=== PATIENT | male | born 1955 | race Caucasian/White ===

== ENCOUNTER 2016-12-02 11:12 | Inpatient (IN) | payer OTHER ==
[~2016-12-02] VITALS: Ht 177.8 cm; Wt 94.5 kg
[2016-12-02] MEDS ORDERED: CARV6.252 PO (11:36)
[2016-12-02] MEDS ORDERED: LOSA50TA6 PO (11:36)
[2016-12-02] MEDS ORDERED: DULA0.75 INJ (11:36)
[2016-12-02] MEDS ORDERED: NITROGLYCERIN OINT 2%, 1GM TP ONE ×2 (11:44→12:00)
[2016-12-02] MEDS ORDERED: SODIUM CHLORIDE FLUSH 10ML SYR IVF ONE ×2 (12:00→14:30)
[2016-12-02 12:05] LABS: HEMATOCRIT 47.7 % (39.2-51.8); HEMOGLOBIN 16.3 g/dL (13.7-18.0); WHITE BLOOD COUNT 8.5 x10^3/uL (3.4-10)
[2016-12-02 12:15] LABS: ASPARTATE AMINO TRANSFERASE 32 U/L (15-37); BLOOD UREA NITROGEN 13 mg/dL (7-18)
[2016-12-02 12:29] LABS: IS PT STATUS REG ER OR PRE ER? YES
[2016-12-02] MEDS ORDERED: HEPARIN 25,000 UNITS/500ML PMX 500 ML ONE (13:11)
[2016-12-02] MEDS ORDERED: HEPARIN 25,000 UNITS/500ML PMX 500 ML IV PRN (13:30)
[2016-12-02] MEDS ORDERED: HEPARIN 5,000 UNITS/ML, 1ML ONE (13:30)
[2016-12-02] MEDS ORDERED: HEPARIN 5,000 UNITS/ML, 1ML IV PRN (13:30)
[2016-12-02] MEDS ORDERED: HEPARIN 5,000 UNITS/ML, 1ML IV ONE (13:30)
[2016-12-02 14:22] VITALS: BP 121/79
[2016-12-02] MEDS ORDERED: GLUCAGON 1 MG IM PRN (15:30)
[2016-12-02] MEDS ORDERED: MORPHINE SULFATE 4 MG/ML, 1ML IVPush PRN (15:30)
[2016-12-02] MEDS ORDERED: DOCUSATE 100 MG CAPSULE PO PRN (15:30)
[2016-12-02] MEDS ORDERED: DEXTROSE 4 GM TAB.CHEW PO PRN (15:30)
[2016-12-02] MEDS ORDERED: BISACODYL 10 MG SUPP PR PRN (15:30)
[2016-12-02] MEDS ORDERED: POLYETHYLENE GLYCOL 17 GM PACKET PO PRN (15:30)
[2016-12-02] MEDS ORDERED: DEXTROSE 50%, 50ML SYRINGE IVPush PRN (15:30)
[2016-12-02] MEDS ORDERED: ONDANSETRON 2MG/ML, 2ML IVPush PRN (15:30)
[2016-12-02] MEDS ORDERED: ACETAMINOPHEN 325 MG TABLET PO PRN (15:30)
[2016-12-02] MEDS: INSULIN ASPART 100 UNITS/ML, PEN SQ-INSULIN SCH ×2 (16:00→21:42)
[2016-12-02 16:48] LABS: IS PT STATUS REG ER OR PRE ER? NO
[2016-12-02] MEDS: SODIUM CHLORIDE 0.9% 1,000 ML IV SCH (17:41)
[2016-12-02] MEDS ORDERED: METF500T4 PO (17:45)
[2016-12-02] MEDS ORDERED: ASPI325T17 PO (17:45)
[2016-12-02] MEDS ORDERED: MELO7.5T31 PO (17:45)
[2016-12-02] MEDS ORDERED: VALA500T PO (17:45)
[2016-12-02] MEDS ORDERED: FEXO180T72 PO (17:45)
[2016-12-02 19:43] VITALS: BP 104/63
[2016-12-02] MEDS ORDERED: CARVEDILOL 6.25 MG TABLET PO SCH (21:00)
[2016-12-02] MEDS: HEPARIN 5,000 UNITS/ML, 1ML IV PRN (21:19)
[2016-12-02] MEDS: ATORVASTATIN 80 MG TABLET PO SCH (21:20)
[2016-12-02] MEDS: CARVEDILOL 3.125 MG TABLET PO SCH (21:20)
[2016-12-02 21:29] LABS: IS PT STATUS REG ER OR PRE ER? NO
[2016-12-02] MEDS: INSULIN DETEMIR 100 UNITS/ML, PEN SQ-INSULIN SCH (21:42)
[2016-12-02] MEDS: SODIUM CHLORIDE FLUSH 10ML SYR IVF SCH (21:42)
[2016-12-03 01:19] VITALS: BP 103/61
[2016-12-03] MEDS: SODIUM CHLORIDE 0.9% 1,000 ML IV SCH (03:45)
[2016-12-03 03:59] LABS: HEMATOCRIT 42.5 % (39.2-51.8); HEMOGLOBIN 14.6 g/dL (13.7-18.0); WHITE BLOOD COUNT 10.5 x10^3/uL (3.4-10)
[2016-12-03 04:01] LABS: BLOOD UREA NITROGEN 16 mg/dL (7-18)
[2016-12-03 04:10] LABS: ASPARTATE AMINO TRANSFERASE 33 U/L (15-37)
[2016-12-03] MEDS: HEPARIN 5,000 UNITS/ML, 1ML IV PRN (04:57)
[2016-12-03] MEDS ORDERED: ASPIRIN 325 MG TABLET PO SCH (06:00)
[2016-12-03 07:14] VITALS: BP 109/58
[2016-12-03] MEDS: INSULIN ASPART 100 UNITS/ML, PEN SQ-INSULIN SCH ×4 (07:49→20:17)
[2016-12-03] MEDS: SODIUM CHLORIDE FLUSH 10ML SYR IVF SCH ×2 (07:51→20:20)
[2016-12-03] MEDS: LOSARTAN 50MG TABLET PO SCH (07:51)
[2016-12-03] MEDS: CARVEDILOL 3.125 MG TABLET PO SCH ×2 (07:51→20:19)
[2016-12-03] MEDS: INSULIN DETEMIR 100 UNITS/ML, PEN SQ-INSULIN SCH (07:52)
[2016-12-03] MEDS ORDERED: CARVEDILOL 6.25 MG TABLET PO SCH (09:00)
[2016-12-03] MEDS ORDERED: MIDAZOLAM 1 MG/ML, 5ML ONE (09:05)
[2016-12-03] MEDS ORDERED: TICAGRELOR 90 MG TABLET ONE (09:05)
[2016-12-03] MEDS ORDERED: HEPARIN 1,000 UNITS/ML, 10ML ONE (09:05)
[2016-12-03] MEDS ORDERED: BIVALIRUDIN 250 MG ONE (09:05)
[2016-12-03] MEDS ORDERED: FENTANYL PF 100 MCG/2ML ONE (09:05)
[2016-12-03] MEDS ORDERED: LIDOCAINE 2%, 20ML ONE (09:05)
[2016-12-03] MEDS ORDERED: VERAPAMIL 2.5 MG/ML, 2ML ONE (09:05)
[2016-12-03] MEDS ORDERED: DOPAMINE ONE (09:18)
[2016-12-03] MEDS ORDERED: PHENYLEPHRINE 10 MG/ML ONE (09:18)
[2016-12-03] MEDS ORDERED: D5W PMX ONE (09:18)
[2016-12-03] MEDS ORDERED: DIPHENHYDRAMINE 50 MG/ML, 1ML ONE (09:50)
[2016-12-03] MEDS ORDERED: SODIUM CHLORIDE 0.9% 1,000 ML IV SCH (12:00)
[2016-12-03 12:35] LABS: IS PT STATUS REG ER OR PRE ER? NO
[2016-12-03] MEDS ORDERED: HEPARIN 25,000 UNITS/500ML PMX 500 ML IV PRN (13:30)
[2016-12-03 13:36] VITALS: BP 130/81
[2016-12-03] MEDS ORDERED: SODIUM CHLORIDE NASAL SPRAY 45ML BOTTLE NAS PRN ×2 (18:30→19:00)
[2016-12-03 18:37] LABS: IS PT STATUS REG ER OR PRE ER? NO
[2016-12-03 18:52] VITALS: BP 165/99
[2016-12-03] MEDS ORDERED: ACETAMINOPHEN 325 MG TABLET PO PRN (19:00)
[2016-12-03] MEDS ORDERED: DEXTROSE 50%, 50ML SYRINGE IVPush PRN (19:00)
[2016-12-03] MEDS ORDERED: MORPHINE SULFATE 4 MG/ML, 1ML IVPush PRN (19:00)
[2016-12-03] MEDS ORDERED: GLUCAGON 1 MG IM PRN (19:00)
[2016-12-03] MEDS ORDERED: DOCUSATE 100 MG CAPSULE PO PRN (19:00)
[2016-12-03] MEDS ORDERED: DEXTROSE 4 GM TAB.CHEW PO PRN (19:00)
[2016-12-03] MEDS ORDERED: POLYETHYLENE GLYCOL 17 GM PACKET PO PRN (19:00)
[2016-12-03] MEDS ORDERED: BISACODYL 10 MG SUPP PR PRN (19:00)
[2016-12-03] MEDS ORDERED: ONDANSETRON 2MG/ML, 2ML IVPush PRN (19:00)
[2016-12-03 20:19] VITALS: BP 143/81
[2016-12-03] MEDS: ATORVASTATIN 80 MG TABLET PO SCH (20:19)
[2016-12-03] MEDS: TICAGRELOR 90 MG TABLET PO SCH (20:19)
[2016-12-03] MEDS: VALACYCLOVIR 500MG TABLET PO SCH (20:19)
[2016-12-04 01:57] VITALS: BP 139/83
[2016-12-04 05:23] LABS: HEMATOCRIT 45.6 % (39.2-51.8); HEMOGLOBIN 15.6 g/dL (13.7-18.0)
[2016-12-04 05:31] LABS: BLOOD UREA NITROGEN 10 mg/dL (7-18)
[2016-12-04] MEDS: INSULIN ASPART 100 UNITS/ML, PEN SQ-INSULIN SCH ×4 (07:00→20:38)
[2016-12-04 07:03] VITALS: BP 138/90
[2016-12-04] MEDS: LOSARTAN 50MG TABLET PO SCH (09:24)
[2016-12-04] MEDS: VALACYCLOVIR 500MG TABLET PO SCH ×2 (09:24→20:35)
[2016-12-04] MEDS: TICAGRELOR 90 MG TABLET PO SCH ×2 (09:24→20:36)
[2016-12-04] MEDS: ASPIRIN 81 MG TABLET EC PO SCH (09:24)
[2016-12-04] MEDS: CARVEDILOL 6.25 MG TABLET PO SCH ×2 (09:24→20:36)
[2016-12-04] MEDS: SODIUM CHLORIDE FLUSH 10ML SYR IVF SCH ×2 (09:25→20:36)
[2016-12-04 13:08] VITALS: BP 125/81
[2016-12-04 16:00] VITALS: BP 135/88
[2016-12-04 19:35] VITALS: BP 150/95
[2016-12-04] MEDS: ATORVASTATIN 80 MG TABLET PO SCH (20:35)
[2016-12-05 02:30] VITALS: BP 119/78
[2016-12-05 05:21] LABS: HEMOGLOBIN 16.6 g/dL (13.7-18.0); WHITE BLOOD COUNT 10.7 x10^3/uL (3.4-10)
[2016-12-05 05:30] LABS: BLOOD UREA NITROGEN 11 mg/dL (7-18)
[2016-12-05] MEDS: INSULIN ASPART 100 UNITS/ML, PEN SQ-INSULIN SCH ×2 (08:03→11:00)
[2016-12-05] MEDS: VALACYCLOVIR 500MG TABLET PO SCH (08:03)
[2016-12-05] MEDS: ASPIRIN 81 MG TABLET EC PO SCH (08:03)
[2016-12-05] MEDS: SODIUM CHLORIDE FLUSH 10ML SYR IVF SCH (08:04)
[2016-12-05] MEDS: LOSARTAN 50MG TABLET PO SCH (08:04)
[2016-12-05] MEDS: CARVEDILOL 6.25 MG TABLET PO SCH (08:04)
[2016-12-05] MEDS: TICAGRELOR 90 MG TABLET PO SCH (08:04)
[2016-12-05 08:05] VITALS: BP 126/80
[2016-12-05] MEDS ORDERED: CARV6.2512 PO (11:14)
[2016-12-05] MEDS ORDERED: ATOR-2 PO (11:14)
[2016-12-05] MEDS ORDERED: TICA90TA PO (11:14)
[2016-12-05] MEDS ORDERED: ASPI-621 PO (11:14)
[2016-12-05] MEDS ORDERED: PNEUMOCOCCAL 23 VACCINE IM-VACC ONE (13:00)
== END 2016-12-05 13:35 | disposition home or self-care (01) | DRG 247 ==
LOC: ED 12:46 → EDIP 13:15 → 5SO 14:15
PROVIDERS: ADMIT Family Medicine; ATTEND Internal Medicine
PROC: 027034Z Dilation of Coronary Artery, One Artery with Drug-eluting Intraluminal Device, Percutaneous Approach (ICD-10-PCS; principal; 2016-12-03)
PROC: 4A023N7 Measurement of Cardiac Sampling and Pressure, Left Heart, Percutaneous Approach (ICD-10-PCS; 2016-12-03)
PROC: B2111ZZ Fluoroscopy of Multiple Coronary Arteries using Low Osmolar Contrast (ICD-10-PCS; 2016-12-03)
DX: I21.4 Non-ST elevation (NSTEMI) myocardial infarction (principal); I47.2 Ventricular tachycardia; E11.65 Type 2 diabetes mellitus with hyperglycemia; E78.5 Hyperlipidemia, unspecified; I10 Essential (primary) hypertension; I25.10 Atherosclerotic heart disease of native coronary artery without angina pectoris; Y92.481 Parking lot as the place of occurrence of the external cause; Z79.82 Long term (current) use of aspirin; Z79.899 Other long term (current) drug therapy; Z82.49 Family history of ischemic heart disease and other diseases of the circulatory system; Z87.891 Personal history of nicotine dependence
CPT/HCPCS: 36415; 71010; 80048; 80053; 80061; 82040; 82550; 82553; 82962; 83036; 83690; 83735; 84100; 84443; 84484; 85025; 85347; 85520; 85610; 85730; 90732; 92920; 93005; 93306; 93458; 96374; 99156; 99157; C1769; C1894; C9600; J0583; J1265; J1644; J2250; J3010; J3490; 92928; C1725; C1874; C1887; J1200; J2370; J7030; Q9967